=== PATIENT | male | born 1985 | race American Indian/Alaskan Native ===

== ENCOUNTER 2018-04-07 04:11 | Inpatient (IN) | payer MEDICARE, MEDICAID ==
--- NOTE | 2018-04-07 04:19 | C.PDOC ---
History Of Present Illness The patient presents to the ED for psychiatric evaluation. Patient was medically cleared at [facility] and was accepted as a transfer to [facility]'s psychiatric unit for depression by Dr. Patterson. Patient admits that he is depressed and denies suicidal/homicidal ideation at this time. Time Seen by Provider: 04/07/18 04:12 Chief Complaint (Nursing): Psychiatric Evaluation History Per: Patient History/Exam Limitations: no limitations Onset/Duration Of Symptoms: Hrs Current Symptoms Are (Timing): Still Present Suicide/Self Injury Attempted (Context): None Modifying Factor(s): None Associated Symptoms: Depression. denies: Suicidal Thoughts, Suicidal Plan Involuntary Hold By: None Recent travel outside of the [place]: No Additional History Per: Patient Past Medical History Reviewed: Historical Data, Nursing Documentation, Vital Signs Vital Signs: Last Vital Signs Temp 99 F 04/07/18 04:15 Pulse 91 H 04/07/18 04:15 Resp 20 04/07/18 04:15 BP 113/73 04/07/18 04:15 Pulse Ox 100 04/07/18 04:15 - Medical History PMH: No Chronic Diseases Surgical History: No Surg Hx Family History: States: Unknown Family Hx Review Of Systems Constitutional: Negative for: Fever, Chills Cardiovascular: Negative for: Chest Pain, Palpitations Respiratory: Negative for: Cough, Shortness of Breath Gastrointestinal: Negative for: Nausea, Vomiting, Abdominal Pain Skin: Negative for: Rash, Lesions, Jaundice, Bruising Neurological: Negative for: Weakness, Numbness Psych: Positive for: Depression. Negative for: Suicidal ideation Physical Exam - Physical Exam Appears: Non-toxic, No Acute Distress Skin: Warm, Dry Head: Normacephalic Oral Mucosa: Moist Neck: Supple Chest: Symmetrical, No Deformity Cardiovascular: Rhythm Regular Respiratory: No Accessory Muscle Use Extremity: Normal ROM Neurological/Psych: Oriented x3 Disposition Discussed With : Brett Patterson Comment: accepted the pt on is service and took over the care at 4:18 PM Doctor Will See Patient In The: Hospital Counseled Patient/Family Regarding: Studies Performed, Diagnosis - Disposition Disposition: HOSPITALIZED Disposition Time: 04:17 Condition: FAIR Forms: [facility] (Burundian) - POA Present On Arrival: None - Clinical Impression Clinical Impression: Depression Decision To Admit - Pt Status Changed To: Hospital Disposition Of: Inpatient - Admit Certification Admit to Inpatient:: After my assessment, the patient will require hospitalization for at least two midnights. This is because of the severity of symptoms shown, intensity of services needed, and/or the medical risk in this patient being treated as an outpatient. - InPatient: Physician Admission Certification: I certify that this patient requires 2 or more midnights of care for the following reason:: After my assessment, the patient will require hospitalization for at least two midnights. This is because of the severity of symptoms shown, intensity of services needed, and/or the medical risk in this patient being treated as an outpatient. - . Bed Request Type: Psychiatry Admitting Physician: Brett Patterson Patient Diagnosis: Depression
--- NOTE | 2018-04-07 05:33 | PCM.BM ---
<Phill Sebastian - Last Filed: 04/07/18 05:32> Treatment Plan Problems - Problems identified on initial assessmt DEPRESSION Date Initiated: 04/07/18 Time Initiated: 05:00 Assessment reference: NA Status: Active SUICIDAL IDEATION Date Initiated: 04/07/18 Time Initiated: 05:00 Assessment reference: NA Status: Active Treatment assets and liabiliti Patient Assests: cooperative, self-reliant, ADL independent, negotiates basic needs Patient Liabilities: financial problems, poor support system, dietary restrictions, medical problems - Milieu Protocol Maintain good personal hygiene: daily Encourage regular showers, daily Remind patient to perform daily oral care, daily Assist patient to perform ADL's Maintain personal safety: every shift Educate patient to report safety concerns to staff, every shift Monitor environment for contraband/sharps Medication safety: Monitor for expected outcome, potential side effects: every shift, Assess barriers to learning: every shift, Assess readiness for medication education: every shift <Marissa Sheehan - Last Filed: 04/08/18 12:17> Family Contact Family involvement: Roby/SO not involved - Goals for Treatment Patient goals for treatment: "I want to go back to my fdc." Discharge/Continuing Care - Education Needs Education Needs: Patient Medication, Patient Coping Skills - Discharge Discharge Criteria: Tolerates medication w/o severe side effects, Reduction of target symptoms Discharge to:: Care Home - Treatment Team Participation Discussed with Family/SO: No Was Patient/Family/SO present at Treatment Team Meeting: Yes
--- NOTE | 2018-04-07 10:27 | PCM.PSYCH ---
Initial Psychiatric Evaluation - Initial Psychiatric Evaluation Type of Admission: Voluntary Legal Status: Capacity Chief Complaint (in patient's own words): "I feel depressed" History of Present Illness and Precipitating Events: Pt is seen, chart reviewed, and case discussed with staff. This is a 33 y/o male, in a relationship with no children. 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 He lives in a mcc at [place]. He was brought in to the ED by his girlfriend who claimed that the pt made a statement expressing suicidal ideation. Pt remained disorganized and internally preoccupied throughout the interview. He adamantly denies such a statement being made and is upset that his girlfriend lied about this; he does however mention that he was crying and felt depressed when he was brought in. Pt states that he was diagnosed with schizophrenia and depression as a teenager , used to take medication but no longer does. He believes he doenst need any medications. He appeared paranoid, delusional and bizarre, however he denies any auditory or visual hallucinations. During the interview pt says that he wants to leave because he has an event on 04/12 that he must attend, appears to be quite fixated on it. Pt is internally preoccupied, disorganized in his thoughts and speech, has a constricted and flat affect but visibly becomes upset when told he can't leave today. Denies any alcohol, drug, or tabaco use. Psych hx: schizophrenia, depression Medical hx: DM Current Medications: Active Medications Generic Name Dose Route Start Last Admin Trade Name Pedro PRN Reason Stop Dose Admin Pneumococcal Polyvalent Vaccine 0.5 ml 04/10/18 10:38 Pneumovax 23 Vaccine IM 04/10/18 10:39 .ONCE ONE Past Psychiatric History - Past Psychiatric History Previous Treatment History: Inpatient Pertinent Medical Hx (Current Medical&Sleep Prob, Allergies): Allergies Allergy/AdvReac Type Severity Reaction Status Date / Time No Known Allergies Allergy Unverified 04/07/18 04:24 Review of Systems - Review of Systems All systems: reviewed and no additional remarkable complaints except - Psychiatric Psychiatric: Anxiety, Depression, Hopelessness, Paranoia, Suicidal Ideation Mental Status Examination - Personal Presentation Personal Presentation: Looks stated age - Affect Affect: Constricted, Flat, Depressed - Motor Activity Motor Activity: Psychomotor Agitation - Reliability in Providing Information Reliability in Providing Information: Poor, due to alteration in thoughts, Poor , due to altered mood - Speech Speech: Disorganized, Irrelevant, Tangential - Mood Mood: Depressed, Anxious - Formal Thought Process Formal Thought Process: Delusions, Paranoia, Loosening of associations, Circumstantial - Hallucinations/Delusions Delusions: Persecution - Obsessions/Compulsions Obsessions: No Compulsions: No - Cognitive Functions Orientation: Person, Place, Situation, Time Sensorium: Alert Attention/Concentration: Attentive Abstract Thinking: [place] Estimate of Intelligence: Below average Judgement: Imparied, as evidence by: Poor judgement, Imparied, as evidence by: Lack of insight into illness Memory: Recent intact, as evidence by: Ability to recall events of the day, Remote intact, as evidenced by: Abilit to recall sig. life events - Risk Risk: Suicidal, Diminished functioning - Strength & Assets Inventory Strength & Assets Inventory: Family support DSM 5 DX - DSM 5 DSM 5 Diagnosis: Schizoaffective disorder bipolar type - Recommended/Plan of Treatment Treatment Recommendations and Plan of Treatment: Schizoaffective disorder bipolar type CBT Psychoeducation Supportive therapy, group therapy Fluphenazine 5 mg PO BID Depakote DR 250 mg PO BID Klonopin 1 mg PO TID Gabapentin for augmentation Trazodone for insomnia Hydroxyzine for anxiety - Smoking Cessation Smoking Cessation Initiated: No
[2018-04-07] MEDS: Divalproex 250 mg DR Tab PO SCH ×2 (11:11→17:17)
[2018-04-07] MEDS: Hydrocortisone 1% Cream (30 GM) TOP PRN (16:12)
[2018-04-07] MEDS ORDERED: Hydrocortisone 1% Cream (30 GM) TOP SCH (18:30)
[2018-04-07] MEDS: (Novolog) Insulin Aspart, Recombinant 100 u/ml 10 ml vial SC SCH (22:15)
[2018-04-07] MEDS: Bacitracin 500 Units/gm Oint Foilpak UD TOP SCH (22:37)
[2018-04-08 08:53] LABS: HDL CHOLESTEROL 56 mg/dL (30-70)
[2018-04-08 09:04] LABS: LDL CHOLESTEROL 52 mg/dL (0-129)
[2018-04-08] MEDS: (Novolog) Insulin Aspart, Recombinant 100 u/ml 10 ml vial SC SCH ×4 (09:21→22:08)
[2018-04-08] MEDS: Divalproex 250 mg DR Tab PO SCH (09:41)
[2018-04-08] MEDS: Bacitracin 500 Units/gm Oint Foilpak UD TOP SCH ×3 (11:11→18:50)
--- NOTE | 2018-04-08 14:43 | PCM.PYCHPN ---
Psychiatric Progress Note - Psychiatric Progress Note Patient seen today, length of contact: 15 min Patient Chief Complaint: "I'm doing good" Problems Identified/Issues Discussed: The pt is seen, chart reviewed, case discussed with staff. Pt was cooperative and seemed to be still internally preoccupied. Pt is still mentioning that he would like to leave since he must be somewhere by 04/12. He had an abscess on the left shoulder which a consult has been requested for. Denies any suicidal ideations. The pt is compliant with medications and reports no side-effects. Symptoms are improving but needs more time to stabilize. Pt attends groups and activities. Support given, psycho-education provided. After care discussed. Mental Status Examination - Cognitive Function Orientation: Person, Place, Situation, Time Memory: Intact Attention: WNL Concentration: WNL Association: Loose Fund of Knowledge: Poor - Mood Mood: Depressed, Anxious - Affect Affect: Constricted, Flat, Depressed - Speech Speech: Soft - Formal Thought Process Formal Thought Process: Delusions, Loosening of associations, Circumstantial - Suicidal Ideation Suicidal Ideation: No - Homicidal Ideation Homicidal Ideation: No Goal/Treatment Plan - Goal/Treatment Plan Progress Toward Problem(s) and Goals/Treatment Plan: Continue medications Support and psychoeducation daily Attend groups and activities daily After care planning by ERIC 15 min
[2018-04-08 16:44] VITALS: O2SAT 100
[2018-04-08] MEDS: Divalproex 500 mg DR Tab PO SCH (17:36)
[2018-04-08] MEDS: Vitamin B Complex/Vitamin C Tab PO SCH (18:50)
[2018-04-09] MEDS: (Novolog) Insulin Aspart, Recombinant 100 u/ml 10 ml vial SC SCH ×4 (08:09→21:49)
[2018-04-09] MEDS: Vitamin B Complex/Vitamin C Tab PO SCH (10:09)
[2018-04-09] MEDS: Divalproex 500 mg DR Tab PO SCH ×2 (10:09→18:03)
[2018-04-09] MEDS: Hydrocortisone 1% Cream (30 GM) TOP PRN (10:45)
[2018-04-09] MEDS: Bacitracin 500 Units/gm Oint Foilpak UD TOP SCH ×2 (10:57→15:02)
--- NOTE | 2018-04-09 13:38 | CP.PCM.PN ---
Subjective - Date & Time of Evaluation Date of Evaluation: 04/09/18 Time of Evaluation: 13:35 - Subjective Subjective: Medicine Consult Note Pt seen and examined at bedside this morning. Pt is sitting comfortably. He states that he is well. Denies any fever of chills. He states that the abscess on his arm has been there for a few days now. He is not sure how it started. He presented to [facility] for evaluation of suicidal ideations and is admitted on 5E for psychiatric care. PMHx: Schizoaffective/Bipolar d/o, HTN, DM, HLD PSHx: denied Meds: colchinine 0.6mg po qd, bydurion 2mg 1pen QW, lisinopril 20 1t po qd, vit d 50k units qw, abilify 1t po qd, topamax 100mg qd, lithium 300mg 1t po bid, insulin 8 u qAM and 25u QPM, lexapro 10mg qd, atenolol 50mg qd, lipitor 10mg qd allergies: denied fam hx: denied social hx: denies drugs, alcohol, tobacco Objective - Vital Signs/Intake and Output Vital Signs (last 24 hours): Temp Pulse Resp BP Pulse Ox 98.1 F 63 18 92/62 L 100 04/09/18 06:54 04/09/18 06:54 04/09/18 06:54 04/09/18 06:54 04/08/18 16:44 - Medications Medications: Current Medications Atenolol (Tenormin) 50 mg PO DAILY [facility] Last Admin: 04/09/18 10:29 Dose: Not Given Bacitracin (Bacitracin) 1 ea TOP TID [facility] Last Admin: 04/09/18 10:57 Dose: Not Given Benztropine Mesylate (Cogentin) 2 mg PO Q6 PRN PRN Reason: Extra Pyramidal Symptoms Last Admin: 04/09/18 02:52 Dose: 2 mg Clonazepam (Klonopin) 1 mg PO BID [facility] Last Admin: 04/09/18 10:10 Dose: 1 mg Colchicine (Colocrys) 0.6 mg PO DAILY [facility] Last Admin: 04/09/18 10:09 Dose: 0.6 mg Divalproex Sodium (Depakote Dr) 500 mg PO BID [facility] Last Admin: 04/09/18 10:09 Dose: 500 mg Escitalopram Oxalate (Lexapro) 10 mg PO DAILY [facility] Last Admin: 04/09/18 10:10 Dose: 10 mg Fluphenazine HCl (Prolixin) 5 mg PO BID [facility] Last Admin: 04/09/18 10:09 Dose: 5 mg Haloperidol (Haldol) 5 mg PO Q8 PRN PRN Reason: Moderate Agitation Hydrochlorothiazide (Hydrodiuril) 25 mg PO DAILY [facility] Last Admin: 04/09/18 10:28 Dose: Not Given Hydrocortisone (Cortizone 1% Cream) 0 gm TOP Q4 PRN PRN Reason: Itching / Pruritus Last Admin: 04/09/18 10:45 Dose: 1 applic Hydroxyzine HCl (Atarax) 25 mg PO Q6 PRN PRN Reason: Anxiety Last Admin: 04/09/18 02:53 Dose: 25 mg Ibuprofen (Motrin Tab) 600 mg PO Q6H PRN PRN Reason: Pain, moderate (4-7) Last Admin: 04/07/18 22:12 Dose: 600 mg Insulin Aspart (Novolog) 0 unit [facility] PRN Reason: Protocol Last Admin: 04/09/18 11:31 Dose: Not Given Lisinopril (Zestril) 20 mg PO DAILY [facility] Last Admin: 04/09/18 10:29 Dose: Not Given Loperamide HCl (Imodium) 2 mg PO Q8 PRN PRN Reason: Diarrhea Lorazepam (Ativan) 1 mg PO Q8H PRN PRN Reason: Severe Agitation Ondansetron HCl (Zofran Tab) 4 mg PO Q8H PRN PRN Reason: Nausea/Vomiting Pneumococcal Polyvalent Vaccine (Pneumovax 23 Vaccine) 0.5 ml IM .ONCE ONE Stop: 04/10/18 10:39 Topiramate (Topamax) 100 mg PO [facility] Last Admin: 04/08/18 22:20 Dose: 100 mg Trimethoprim/Sulfamethoxazole (Bactrim Ds Tab) 1 tab PO Q12H [facility] PRN Reason: Protocol Stop: 04/18/18 23:59 Vitamin B Complex/Vitamin C (Berocca) 1 tab PO DAILY [facility] Last Admin: 04/09/18 10:09 Dose: 1 tab - Constitutional Appears: No Acute Distress - Head Exam Head Exam: ATRAUMATIC, NORMOCEPHALIC - Eye Exam Eye Exam: EOMI - ENT Exam ENT Exam: Mucous Membranes Moist - Respiratory Exam Respiratory Exam: Clear to Ausculation Bilateral, NORMAL BREATHING PATTERN - Cardiovascular Exam Cardiovascular Exam: REGULAR RHYTHM - GI/Abdominal Exam GI & Abdominal Exam: Soft. absent: Tenderness - Neurological Exam Neurological Exam: Alert, Awake, Oriented x3 - Psychiatric Exam Psychiatric exam: Normal Affect, Normal Mood - Skin Additional comments: bandage on abscess- upper left arm; posterior aspect. Mild serosanginous discharge with granular base. Well demarcated margins. Assessment and Plan - Assessment and Plan (Free Text) Plan: Schizoaffective disorder bipolar type Continue with treatment plan as per Psych team Abscess Afebrile F/U labs- cbc/cmp; evaluate for white count start Bactrim DS 1T PO Q12hrs x 10D Topical bacitracin TID HTN Atenolol 50mg PO QD Lisinopril 20mg PO QD DM ISS fingersticks achs f/u A1C Gout- non-acute Colchicine 0.6mg PO QD PPX Ambulatory- no A/C or SCDs Case discussed with Dr. Gaytan All medical management as per Dr. Gaytan
--- NOTE | 2018-04-09 13:42 | PCM.PYCHPN ---
Psychiatric Progress Note - Psychiatric Progress Note Patient seen today, length of contact: 15 min Patient Chief Complaint: "I feel little better" Problems Identified/Issues Discussed: Patient seen and evaluated, chart reviewed and discussed with the nurse. Pt reports improvement in his mood, and paranoia. He remained isolated and withdrawn, but he started coming out of his room. He wants to go back to his residential. He signed 48 hours notice yesterday. Patient is compliant with medications and denies any side effects. Symptoms are improving but pt needs more time to stabilize. Support and psychoeducation given. Medication Change: Yes Medical Record Reviewed: Yes Mental Status Examination - Cognitive Function Orientation: Person, Place, Situation, Time Memory: Intact Attention: WNL Concentration: WNL Association: Loose Fund of Knowledge: WNL - Mood Mood: Depressed, Anxious - Affect Affect: Constricted, Flat, Depressed - Speech Speech: Soft - Formal Thought Process Formal Thought Process: Loosening of associations - Suicidal Ideation Suicidal Ideation: No - Homicidal Ideation Homicidal Ideation: No Goal/Treatment Plan - Goal/Treatment Plan Need for Continued Stay: Severe depression anxiety, Severe functional impairment Progress Toward Problem(s) and Goals/Treatment Plan: Schizoaffective disorder bipolar type CBT Psychoeducation Supportive therapy, group therapy Fluphenazine 5 mg PO BID Depakote DR 250 mg PO BID Klonopin 1 mg PO TID Gabapentin for augmentation Trazodone for insomnia Hydroxyzine for anxiety - Smoking Cessation Smoking Cessation Initiated: No
[2018-04-09] MEDS: Tmp-Smz 800 mg-160 mg DS Tab PO SCH ×2 (15:05→18:03)
[2018-04-09] MEDS: Bacitracin Ointment 30 GM TUBE TOP SCH ×2 (18:05→18:29)
[2018-04-10] MEDS ORDERED: Tmp-Smz 800 mg-160 mg DS Tab PO SCH (06:00)
--- NOTE | 2018-04-10 06:49 | CON ---
Copied To: Jj Gaytan MD Attending MD: Jj Gaytan MD DATE: 04/09/2018 HISTORY OF PRESENT ILLNESS: A 33-year-old male with a history of depression, chief complaint depression. Patient found an abscess left shoulder. PHYSICAL EXAMINATION: GENERAL: The patient is awake, alert and oriented to time and place. VITAL SIGNS: Temperature 98, pulse 90. HEENT: Within normal limits. NECK: Supple. CHEST: Symmetrical. HEART: Regular. ASSESSMENT: Left axilla small abscess which is open. PLAN: Patient suffers from Patient bed rest. Supportive care. Jj Gaytan MD
[2018-04-10 06:52] VITALS: RESP 20; TEMP 98
[2018-04-10] MEDS: (Novolog) Insulin Aspart, Recombinant 100 u/ml 10 ml vial SC SCH (07:34)
[2018-04-10 08:54] LABS: BASO % 0.2 % (0.0-2.0); EOS # 0.2 K/uL (0.0-0.7); EOS % 1.6 % (0.0-4.0); HEMOGLOBIN 12.6 g/dL (12.0-18.0); LYMPH # 2.9 K/uL (1.0-4.3); LYMPH % 22.3 % (20.0-40.0); MEAN CORPUSCULAR HEMOGLOBIN 24.3 pg (27.0-31.0); MEAN CORPUSCULAR HGB CONC 32.4 g/dL (33.0-37.0); MEAN PLATELET VOLUME 9.6 fL (7.2-11.7); MONO # 0.9 K/uL (0.0-0.8); MONO % 6.7 % (0.0-10.0); NEUT # 9.1 K/uL (1.8-7.0); NEUT % 69.2 % (50.0-75.0); RBC 5.18 Mil/uL (4.40-5.90); RED CELL DISTRIBUTION WIDTH 16.5 % (11.5-14.5); WHITE BLOOD COUNT 13.2 K/uL (4.8-10.8)
[2018-04-10 09:09] LABS: ALB/GLOB RATIO 1.5 (1.0-2.1); ALBUMIN 4.5 g/dL (3.5-5.0); ALT/SGPT 35 U/L (21-72); AST/SGOT 22 U/L (17-59); BLOOD UREA NITROGEN 12 mg/dL (9-20); CALCIUM 9.5 mg/dl (8.6-10.4); GFR NON-AFRICAN AMERICAN > 60
--- NOTE | 2018-04-10 09:47 | PCM.PYCHDC ---
Mental Status Examination - Mental Status Examination Orientation: Person, Place, Situation, Time Memory: Intact Mood: Neutral Affect: Constricted Speech: Soft Attention: WNL Concentration: WNL Association: WNL Fund of Knowledge: WNL Formal Thought Process: No Impairment Description of patient's judgement and insight: good, fair Psychotic Thoughts and Behaviors: denies any AVH Suicidal Ideation: No Current Homicidal Ideation?: No Discharge Summary - Discharge Note Reason for Hospitalization: Pt is seen, chart reviewed, and case discussed with staff. This is a 33 y/o male, in a relationship with no children. 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 He lives in a prison at [place]. He was brought in to the ED by his girlfriend who claimed that the pt made a statement expressing suicidal ideation. Pt remained disorganized and internally preoccupied throughout the interview. He adamantly denies such a statement being made and is upset that his girlfriend lied about this; he does however mention that he was crying and felt depressed when he was brought in. Pt states that he was diagnosed with schizophrenia and depression as a teenager , used to take medication but no longer does. He believes he doenst need any medications. He appeared paranoid, delusional and bizarre, however he denies any auditory or visual hallucinations. During the interview pt says that he wants to leave because he has an event on 04/12 that he must attend, appears to be quite fixated on it. Pt is internally preoccupied, disorganized in his thoughts and speech, has a constricted and flat affect but visibly becomes upset when told he can't leave today. Denies any alcohol, drug, or tabaco use. Laboratory Data: Abnormal Lab Results 04/09/18 04/09/18 04/09/18 11:28 15:58 20:10 WBC RBC Hgb Hct MCV MCH MCHC RDW Plt Count MPV Neut % (Auto) Lymph % (Auto) [place] % (Auto) Eos % (Auto) Baso % (Auto) Neut # (Auto) Lymph # (Auto) [place] # (Auto) Eos # (Auto) Baso # (Auto) Sodium Potassium Chloride Carbon Dioxide Anion Gap BUN Creatinine Est GFR ( Amer) Est GFR (Non-Af Amer) POC Glucose (mg/dL) 75 96 76 Random Glucose Hemoglobin A1c Calcium Total Bilirubin AST ALT Alkaline Phosphatase Total Protein Albumin Globulin Albumin/Globulin Ratio 04/10/18 04/10/18 04/10/18 07:24 08:42 08:42 WBC 13.2 H RBC 5.18 Hgb 12.6 Hct 38.9 MCV 75.0 L MCH 24.3 L MCHC 32.4 L RDW 16.5 H Plt Count 291 MPV 9.6 Neut % (Auto) 69.2 Lymph % (Auto) 22.3 [place] % (Auto) 6.7 Eos % (Auto) 1.6 Baso % (Auto) 0.2 Neut # (Auto) 9.1 H Lymph # (Auto) 2.9 [place] # (Auto) 0.9 H Eos # (Auto) 0.2 Baso # (Auto) 0.0 Sodium 140 Potassium 3.6 Chloride 102 Carbon Dioxide 21 L Anion Gap 21 H BUN 12 Creatinine 1.1 Est GFR ( Amer) > 60 Est GFR (Non-Af Amer) > 60 POC Glucose (mg/dL) 91 Random Glucose 112 H Hemoglobin A1c Calcium 9.5 Total Bilirubin 0.4 AST 22 ALT 35 Alkaline Phosphatase 70 Total Protein 7.6 Albumin 4.5 Globulin 3.1 Albumin/Globulin Ratio 1.5 04/10/18 08:42 WBC RBC Hgb Hct MCV MCH MCHC RDW Plt Count MPV Neut % (Auto) Lymph % (Auto) [place] % (Auto) Eos % (Auto) Baso % (Auto) Neut # (Auto) Lymph # (Auto) [place] # (Auto) Eos # (Auto) Baso # (Auto) Sodium Potassium Chloride Carbon Dioxide Anion Gap BUN Creatinine Est GFR ( Amer) Est GFR (Non-Af Amer) POC Glucose (mg/dL) Random Glucose Hemoglobin A1c 6.3 Calcium Total Bilirubin AST ALT Alkaline Phosphatase Total Protein Albumin Globulin Albumin/Globulin Ratio Consultations:: List each consultation separately and include: 1. Reason for request. 2. Findings. 3. Follow-up Summary of Hospital Course include:: 1. Description of specific treatment plan utilized for patients during their course of treatmen. 2. Summarize the time- course for resolution of acute symptoms and/or regressed behaviors. 3. Describe issues identified and worked on during hospitalization. 4. Describe medication utilized. 5. Describe medical problems identified and treated. 6. Reassessment of suicide risk Summary of Hospital Course: During the course of his stay, patient (pt) started progressively improving and no longer remained irritable, paranoid, disorganized and agitated. Prolixin, lexapro and depakote were started and pt showed a very good response. His mood and anxiety were improved and he started attending groups and meetings and started socializing. Patient denied any feelings of hopelessness, helplessness, and worthlessness, denied any problem with the sleep or appetite, denied suicidal ideation or homicidal ideation. Pt denied any auditory or visual hallucinations. He denied any withdrawal symptoms. Pt was treated with medications along with supportive therapy, milieu therapy and group therapy. Some changes were made in his current medications and patient was discharged on following medications. He tolerated these medications very well and denied any side effects. He signed a 48 hours notice and was eventually discharged today. - Final Diagnosis (DSM 5) Condition upon Discharge: FAIR DSM 5: Schizoaffective disorder bipolar type Disposition: HOME/ ROUTINE Follow-up Treatment Plan: Followup: He was discharged to the [facility]. Education: Pt was educated and counseled about the risks and benefits of taking and not taking medications. Pt was educated and counseled about the risks of drinking and abusing drugs. Pt was educated and counseled to go to the ER or call 911 if pt develop suicidal ideation or homicidal ideation, worsening of symptoms or severe side effects of the meds. Prescriptions/Medication Reconciliation: Divalproex [Depakote DR] 500 mg PO BID #60 tcp Escitalopram [Lexapro] 10 mg PO DAILY #30 tab fluPHENAZine [Prolixin] 5 mg PO BID #60 tab Topiramate [Topamax] 100 mg PO HS #30 tab - Smoking Cessation Smoking Cessation Medication prescribed: No - Antipsychotic Medications Pt discharged on 2 or more routine antipsychotic medications: No
[2018-04-10] MEDS: Divalproex 500 mg DR Tab PO SCH (09:57)
[2018-04-10 10:02] VITALS: BP 112/75; PULSE 86
[2018-04-10] MEDS: Bacitracin Ointment 30 GM TUBE TOP SCH (10:02)
[2018-04-10] MEDS: Vitamin B Complex/Vitamin C Tab PO SCH (10:02)
[2018-04-10] MEDS ORDERED: Pneumococcal 23-Valent Vaccine IM ONE (10:38)
== END 2018-04-10 10:45 | disposition home or self-care (01) | DRG 885 ==
LOC: C.ER 04:11 → C.5E 04:25
PROC: GZHZZZZ Group Psychotherapy (ICD-10-PCS; principal; 2018-04-07)
PROC: GZ58ZZZ Individual Psychotherapy, Cognitive-Behavioral (ICD-10-PCS; 2018-04-07)
PROC: GZ56ZZZ Individual Psychotherapy, Supportive (ICD-10-PCS; 2018-04-07)
DX: F25.0 Schizoaffective disorder, bipolar type (principal); L02.414 Cutaneous abscess of left upper limb; R45.851 Suicidal ideations; E11.9 Type 2 diabetes mellitus without complications; E78.5 Hyperlipidemia, unspecified; F41.9 Anxiety disorder, unspecified; G47.00 Insomnia, unspecified; I10 Essential (primary) hypertension; M10.9 Gout, unspecified